=== PATIENT | male | born 1980 | race Caucasian/White ===

== ENCOUNTER 2020-07-18 23:01 | Emergency (ER) | payer SELFPAY ==
--- NOTE | 2020-07-18 23:13 | ED.ALCOHOL ---
HPI - Alcohol General Chief Complaint: ETOH/Substance Use Stated Complaint: etoh Time Seen by Provider: 07/18/20 23:12 Source: patient and EMS Mode of arrival: EMS Limitations: no limitations History of Present Illness HPI narrative: Patient was found sleeping in the car , was drinking drinking before. Patient denies any other substance use. States that patient was tired and had few drinks this time patient is awake able to ambulate in steady gait MD complaint: alcohol intoxication Last drink: Hours (ago) Chronic alcohol use: Yes Previous visits for alcohol intoxication: No Recent trauma: No Associated symptoms: denies other symptoms Treatments prior to arrival: none Related Data Allergies Allergy/AdvReac Type Severity Reaction Status Date / Time No Known Allergies Allergy Verified 07/18/20 23:17 Review of Systems Review of Systems: Yes all other systems are reviewed and are negative PMFSH Past Medical History Medical History Patient denies significant medical history Physical Exam Vital Signs: Vital Signs: Last Vital Signs Temp 98.0 F 07/18/20 23:14 Pulse 98 07/18/20 23:14 Resp 16 07/18/20 23:14 BP 144/97 H 07/18/20 23:14 Pulse Ox 98 07/18/20 23:14 Body Mass Index 38.0 Appearance: Alert. Oriented X3. No acute distress. ETOH+ Eyes: Pupils equal, round and reactive to light. ENT: Pharynx normal. Neck: Normal inspection. Neck supple. CVS: Normal heart rate and rhythm. Pulses normal. Respiratory: No respiratory distress. Breath sounds normal. Abdomen: Soft and nontender. Skin: Skin warm and dry. Normal skin color. Normal skin turgor. Extremities: No lower extremity edema. Neuro: Oriented X 3. No motor deficit. No sensory deficit. Stable gait Course Course Course Narrative: Patient after came here after alcohol intoxication at this time patient is alert awake ambulatory in steady gait will discharge patient home patient refused any help Discharge Plan Discharge Clinical Impression: Alcohol intoxication Qualifiers: Complication of substance-induced condition: uncomplicated Qualified Code(s): F10.920 - Alcohol use, unspecified with intoxication, uncomplicated Patient Disposition: Home, Self-Care Instructions: Abuse of Alcohol (ED) Additional Instructions: Do not drink alcohol a bowel legal limit and in public spaces. Follow with detox if you need any help
[2020-07-18 23:14] VITALS: BP 144/97; PULSE 98; RESP 16; TEMP 36.7; O2SAT 98; BMI 38.0
--- NOTE | 2020-07-18 23:33 | PC.NURSE ---
Pt verbally sexually aggressive with female staff, reminded multiple times of proper manners and redirected. Security at bedside.
--- NOTE | 2020-07-18 23:35 | PC.NURSE ---
Per Dr. Sunshine pt ok discharge self. pt ambulates with steady gait, aox3.
== END 2020-07-18 23:36 | disposition home or self-care (01) ==
LOC: HO.ED 23:25
PROVIDERS: Emergency Provider Internal Medicine
DX: F10.920 Alcohol use, unspecified with intoxication, uncomplicated (principal); Y90.9 Presence of alcohol in blood, level not specified
CPT/HCPCS: 99284

== ENCOUNTER 2020-08-18 20:18 | Emergency (ER) | payer OTHER, SELFPAY ==
[2020-08-18 20:27] VITALS: BP 145/98; PULSE 114; RESP 18; TEMP 36.7; O2SAT 96; BMI 28.8
[2020-08-18 20:55] VITALS: BP 145/98; PULSE 114; RESP 18; TEMP 36.7; O2SAT 96
[2020-08-18 21:39] LABS: Amphetamine Screen Urine Not Detected (Not Detect); Barbiturates, Urine Not Detected (Not Detect); Benzodiazepines Screen Urine Not Detected (Not Detect); Cannabinoid Screen Urine Not Detected (Not Detect); Cocaine Screen Urine Not Detected (Not Detect); Opiate Screen Urine Not Detected (Not Detect); Phencyclidine Screen Urine Not Detected (Not Detect)
--- NOTE | 2020-08-18 22:00 | ED_ITS ---
HPI - General Adult General Chief complaint: ETOH/Substance Use <Tracey Pablo NP - Last Filed: 08/18/20 22:35> Stated complaint: etoh <Tracey Pablo NP - Last Filed: 08/18/20 22:35> Time Seen by Provider: 08/18/20 21:52 <Tracey Pablo NP - Last Filed: 08/18/20 22:35> Source: patient <Tracey Pablo NP - Last Filed: 08/18/20 22:35> Mode of arrival: ambulatory <Tracey Pablo NP - Last Filed: 08/18/20 22:35> Limitations: no limitations <Tracey Pablo NP - Last Filed: 08/18/20 22:35> History of Present Illness HPI narrative: 39-year-old male previously healthy here after drinking several drinks. Patient tells me that he had a couple drinks after work was driving home and thought it was unsafe to keep driving so he pulled over to take a nap. EMS was called by a bystander who found him sleeping in his car. PD and EMS were on scene they transported the patient here. On arrival the patient is alert and oriented, walking around his room with a steady gait. Denies additional substance use. No physical complaints. No SI or HI or hallucinations. <Tracey Pablo NP - Last Filed: 08/18/20 22:35> Related Data Allergies/adverse reactions: Allergies Allergy/AdvReac Type Severity Reaction Status Date / Time No Known Allergies Allergy Verified 07/18/20 23:17 <Tracey Pablo NP - Last Filed: 08/18/20 22:35> Review of Systems Review of Systems: Yes all other systems are reviewed and are negative <Tracey Pablo NP - Last Filed: 08/18/20 22:35> Constitutional: Constitutional: Reports no additional constitutional complaints, Denies body ache(s), Denies chills, Denies fever(s), Denies headache(s) and Denies weakness <Tracey Pablo NP - Last Filed: 08/18/20 22:35> Eyes: Eyes: Reports no additional eye complaints and Denies change in vision <Tracey Pablo NP - Last Filed: 08/18/20 22:35> ENT: Reports system reviewed and no additional complaints, except as documented, Denies dizziness, Denies headache(s), Denies nasal congestion, Denies nasal discharge and Denies neck pain <Tracey Pablo NP - Last Filed: 08/18/20 22:35> Cardiovascular: Cardiovascular: Reports no additional cardiovascular compl aints, Denies chest pain, Denies leg edema and Denies dyspnea <Tracey Pablo NP - Last Filed: 08/18/20 22:35> Respiratory: Respiratory: Reports no additional respiratory complaints, Denies cough and Denies dyspnea <Tracey Pablo NP - Last Filed: 08/18/20 22:35> Gastrointestinal: Gastrointestinal: Reports no additional gastrointestinal complaints, Denies abdominal pain, Denies diarrhea, Denies nausea and Denies vomiting <Tracey Pablo NP - Last Filed: 08/18/20 22:35> Genitourinary: Genitourinary: Denies urinary incontinence <Tracey Pablo NP - Last Filed: 08/18/20 22:35> Musculoskeletal: Musculoskeletal: Reports no additional musculoskeletal complaints, Denies back pain, Denies arthralgias, Denies joint swelling, Denies neck pain, Denies numbness and Denies tingling <Tracey Pablo NP - Last Filed: 08/18/20 22:35> Integumentary/Breasts: Skin/Breast: Reports system reviewed and no additional complaints, except as docu and Denies rash <Tracey Pablo NP - Last Filed: 08/18/20 22:35> Neurologic: Reports system reviewed and no additional complaints, except as documented, Denies Abnormal speech present, Denies dizziness, Denies headache(s), Denies numbness, Denies tingling and Denies weakness <Tracey Pablo NP - Last Filed: 08/18/20 22:35> PMFSH Past Medical History Medical History: Medical History Patient denies significant medical history <Tracey Pablo NP - Last Filed: 08/18/20 22:35> Social History Social History: Social History Alcohol intake: current Advance Directives: No Advance Directives Information Provided: Yes <Tracey Pablo NP - Last Filed: 08/18/20 22:35> Physical Exam Vital Signs: Vital Signs: Last Vital Signs Temp 98.1 F 08/18/20 20:55 Pulse 114 H 08/18/20 20:55 Resp 18 08/18/20 20:55 BP 145/98 H 08/18/20 20:55 Pulse Ox 96 08/18/20 20:55 Body Mass Index 28.8 <Tracey Pablo NP - Last Filed: 08/18/20 22:35> Vital Signs: Last Vital Signs Temp 98.1 F 08/18/20 20:55 Pulse 114 H 08/18/20 20:55 Resp 18 08/18/20 20:55 BP 145/98 H 08/18/20 20:55 Pulse Ox 96 08/18/20 20:55 Body Mass Index 28.8 <Alexandre Rodriguez MD - Last Filed: 08/29/20 16:53> Const: General: cooperative, healthy appearing, comfortable and no acute distress <Tracey Pablo NP - Last Filed: 08/18/20 22:35> Orientation/consciousness: patient oriented x3 <Tracey Pablo NP - Last Filed: 08/18/20 22:35> Limitations: no limitations <Tracey Pablo NP - Last Filed: 08/18/20 22:35> HENMT: Head: Yes normal to inspection <Tracey Pablo NP - Last Filed: 08/18/20 22:35> Ears: hearing grossly normal bilaterally <Tracey Pablo NP - Last Filed: 08/18/20 22:35> General nose exam: Normal external nose present <Tracey Pablo NP - Last Filed: 08/18/20 22:35> Face and sinus: Yes normal facial exam <Tracey Pablo NP - Last Filed: 08/18/20 22:35> Mouth: Normal oral and palatal mucosa present <Tracey Pablo NP - Last Filed: 08/18/20 22:35> Throat: Yes posterior oropharynx normal <Tracey Pablo NP - Last Filed: 08/18/20 22:35> Eyes: General: appearance normal, both eyes and all related structures <Tracey Pablo [employer] - Last Filed: 08/18/20 22:35> Pupils: Equal, round and reactive pupils present <Tracey Pablo [employer] - Last Filed: 08/18/20 22:35> Neck: Neck: Yes normal visual inspection <Tracey Pablo [employer] IN[employer] - Last Filed: 08/18/20 22:35> Chest: Chest palpation & inspection: normal inspection of the chest <Tracey Pablo [employer] IN[employer] - Last Filed: 08/18/20 22:35> Resp: Effort & Inspection: normal respiratory effort <Tracey Pablo NP - Last Filed: 08/18/20 22:35> Auscultation: clear to auscultation bilaterally <Tracey Pablo [employer] IN[employer] - Last Filed: 08/18/20 22:35> Cardio: Rate: regular rate <Tracey Pablo NP - Last Filed: 08/18/20 22:35> Rhythm: regular rhythm <Tracey Pablo NP - Last Filed: 08/18/20 22:35> Peripheral pulses: Peripheral pulses 2+ throughout <Tracey Pablo NP - Last Filed: 08/18/20 22:35> GI: Inspection: Yes normal to inspection <Tracey Pablo [employer] - Last Filed: 08/18/20 22:35> Palpation (GI): Soft to palpation and nontender <Tracey Pablo [employer] IN[employer] - Last Filed: 08/18/20 22:35> Auscultation: normal bowel sounds <Tracey Pablo [employer] IN[employer] - Last Filed: 08/18/20 22:35> Back/Spine/Pelvis: Thoracic/Lumbar Spine: thoracic and lumbar spine normal to inspection <Tracey Pablo [employer] - Last Filed: 08/18/20 22:35> Skin: General skin exam: no rashes or lesions noted <Tracey Pablo NP - Last Filed: 08/18/20 22:35> Neuro: General: patient oriented x3, no focal motor deficits and normal sensation to monofilament <Tracey Pablo NP - Last Filed: 08/18/20 22:35> Cranial nerves: Yes Equal, round and reactive pupils present <Tracey Pablo NP - Last Filed: 08/18/20 22:35> Cognition (Neuro): normal cognition <Tracey Pablo NP - Last Filed: 08/18/20 22:35> Speech: No Abnormal speech present <Tracey Pablo NP - Last Filed: 08/18/20 22:35> Gait exam (Neuro): Normal gait present <Tracey Pablo NP - Last Filed: 08/18/20 22:35> Motor exam (neuro): 5/5 motor strength present throughout <Tracey Pablo NP - Last Filed: 08/18/20 22:35> Extrem: General: Yes normal to inspection <Tracey Pablo NP - Last Filed: 08/18/20 22:35> Course Course Course Narrative: 39-year-old male brought in by EMS after having several drinks found sleeping in his car. On arrival patient is alert and oriented, walking around the room, tolerating p.o.. He has no physical complaints. No HI or SI. He is able to call for a ride and his mom is here to pick him up. <Tracey Pablo NP - Last Filed: 08/18/20 22:35> I have reviewed the chart <Alexandre Rodriguez MD - Last Filed: 08/29/20 16:53> Medical Decision Making Lab Data Labs: Lab Results 08/18/20 Range/Units Unknown Urine Opiates Screen Not Detected (Not Detect) Ur Barbiturates Screen Not Detected (Not Detect) Ur Phencyclidine Scrn Not Detected (Not Detect) Ur Amphetamines Screen Not Detected (Not Detect) U Benzodiazepines Scrn Not Detected (Not Detect) Urine Cocaine Screen Not Detected (Not Detect) U Marijuana (THC) Screen Not Detected (Not Detect) <Tracey Pablo NP - Last Filed: 08/18/20 22:35> Lab Results 08/18/20 Range/Units Unknown Urine Opiates Screen Not Detected (Not Detect) Ur Barbiturates Screen Not Detected (Not Detect) Ur Phencyclidine Scrn Not Detected (Not Detect) Ur Amphetamines Screen Not Detected (Not Detect) U Benzodiazepines Scrn Not Detected (Not Detect) Urine Cocaine Screen Not Detected (Not Detect) U Marijuana (THC) Screen Not Detected (Not Detect) <Alexandre Rodriguez MD - Last Filed: 08/29/20 16:53> Discharge Plan Discharge Clinical Impression: Alcohol intoxication <Tracey Pablo NP - Last Filed: 08/18/20 22:35> Patient Disposition: Home, Self-Care <Tracey Pablo NP - Last Filed: 08/18/20 22:35> Instructions: Alcohol Intoxication (ED) <Tracey Pablo NP - Last Filed: 08/18/20 22:35> Referrals: Physician,None [Primary Care Provider] - 2 days <Tracey Pablo NP - Last Filed: 08/18/20 22:35> Interventions: ED Discharge Assessment Last Done: 08/18/20 22:03 <Tracey Pablo NP - Last Filed: 08/18/20 22:35> Discharge Date/Time: 08/18/20 22:19 <Tracey Pablo NP - Last Filed: 08/18/20 22:35>
== END 2020-08-18 22:19 | disposition home or self-care (01) ==
PROVIDERS: Emergency Provider Emergency Medicine
DX: F10.920 Alcohol use, unspecified with intoxication, uncomplicated (principal)
CPT/HCPCS: 80307; 99283

== ENCOUNTER 2021-03-23 09:10 | Outpatient (REF) | payer OTHER, SELFPAY ==
[2021-03-23 09:54] LABS: COVID-19 Test Positive (Negative)
== END 2021-03-23 09:11 | disposition home or self-care (01) ==
LOC: HO.LAB 09:10
PROVIDERS: Visit Provider Internal Medicine
DX: Z20.822 Contact with and (suspected) exposure to COVID-19 (principal)
CPT/HCPCS: 36415; 87635; C9803

== ENCOUNTER 2021-05-28 18:05 | Emergency (ER) | payer SELFPAY ==
--- NOTE | ~2021-05-28 | XR_ITS ---
EXAMINATION: 1. LEFT FOOT. 2. LEFT ANKLE. CLINICAL INFORMATION: Pain. COMPARISON: None TECHNIQUE: 1. Left foot. 3 views 2. Left ankle. 3 views FINDINGS: 1. Left foot. No fracture. No dislocation. Joint spaces are normal. No soft tissue abnormality. 2. Left ankle. No fracture. No dislocation. Ankle mortise is congruent. There is soft tissue swelling around the ankle. XR/XR ankle LT 2V IMPRESSION: No acute osseous abnormality of the foot or ankle. There is soft tissue swelling around the ankle.
--- NOTE | ~2021-05-28 | XR_ITS ---
EXAMINATION: 1. LEFT FOOT. 2. LEFT ANKLE. CLINICAL INFORMATION: Pain. COMPARISON: None TECHNIQUE: 1. Left foot. 3 views 2. Left ankle. 3 views FINDINGS: 1. Left foot. No fracture. No dislocation. Joint spaces are normal. No soft tissue abnormality. 2. Left ankle. No fracture. No dislocation. Ankle mortise is congruent. There is soft tissue swelling around the ankle. XR/XR foot LT 2V IMPRESSION: No acute osseous abnormality of the foot or ankle. There is soft tissue swelling around the ankle.
[2021-05-28 18:28] VITALS: BP 142/85; PULSE 110; RESP 16; TEMP 36.8; BMI 34.1
--- NOTE | 2021-05-28 21:53 | ED.LOWEXIN ---
HPI - Extremity Injury (Lower) General Chief Complaint: Extremity Problem Stated Complaint: foot inj - work Time Seen by Provider: 05/28/21 21:39 Source: patient Mode of arrival: ambulatory Limitations: no limitations History of Present Illness HPI Narrative: Patient complaining of left ankle pain for last few days and was wearing the new work boots no significant injuries pain on external rotation fetid Related Data Previous Rx's Medication Instructions Recorded oxycodone-acetaminophen 5 mg-325 1 tab PO Q6H PRN #20 tab 05/28/21 mg tablet (Percocet) Allergies Allergy/AdvReac Type Severity Reaction Status Date / Time No Known Allergies Allergy Verified 07/18/20 23:17 Review of Systems Review of Systems: Yes all other systems are reviewed and are negative PMFSH Past Medical History Medical History Patient denies significant medical history Social History Social History Alcohol intake: current Advance Directives: No Advance Directives Information Provided: No Physical Exam Vital Signs: Vital Signs: Last Vital Signs Temp 98.2 F 05/28/21 18:28 Pulse 110 H 05/28/21 18:28 Resp 16 05/28/21 18:28 BP 142/85 H 05/28/21 18:28 Body Mass Index 34.1 Const: General: no acute distress and well developed Extrem: Ankle/foot/toe images: 1. Soft tissue swelling lateral malleolus no bony deformity neurovascular intact MDM - Extremity Injury (Lower) MDM Narrative Medical decision making narrative: Patient x-ray negative for fracture, ortho boot was applied, discharge patient home Differential Diagnosis Differential diagnosis: Likely ankle sprain and strain Discharge Plan Discharge Clinical Impression: Sprain of ankle Patient Disposition: Home, Self-Care Instructions: Ankle Sprain (ED) Additional Instructions: Use crutches , wear ortho boot for support Pain medication as advised Keep the leg elevated Prescriptions: New oxycodone-acetaminophen [Percocet] 5-325 mg tablet 1 tab PO Q6H PRN (Reason: pain) Qty: 20 RF: 0 Stand Alone Forms: Work/School Release Interventions: ED Discharge Assessment Last Done: 05/28/21 22:17 Discharge Date/Time: 05/28/21 22:18
[2021-05-28] MEDS: oxyCODONE HCl Immed Release 5 MG TABLET 10 MG PO (21:54)
== END 2021-05-28 22:18 | disposition home or self-care (01) ==
PROVIDERS: Emergency Provider Internal Medicine
DX: S93.402A Sprain of unspecified ligament of left ankle, initial encounter (principal); X58.XXXA Exposure to other specified factors, initial encounter; Y93.9 Activity, unspecified; Y92.9 Unspecified place or not applicable; Y99.0 Civilian activity done for income or pay
CPT/HCPCS: 73600; 73620; 99283

== ENCOUNTER 2022-03-01 23:25 | Emergency (ER) | payer SELFPAY ==
--- NOTE | 2022-03-02 00:59 | PC.NURSE ---
Pt called for triage, not present in [facility].
[2022-03-02 01:03] VITALS: BP 132/72; PULSE 116; O2SAT 96
== END 2022-03-02 01:37 | disposition left against medical advice (07) ==
LOC: HO.ED 03-02 01:28
PROVIDERS: Emergency Provider Emergency Medicine
DX: Z04.1 Encounter for examination and observation following transport accident (principal)